=== PATIENT | female | born 1980 | race Caucasian/White ===

== ENCOUNTER 2021-05-05 12:16 | Emergency (ER) | payer OTHER, SELFPAY ==
[2021-05-05 12:27] VITALS: BP 165/97; PULSE 106; RESP 16; TEMP 36.9; O2SAT 100
--- NOTE | 2021-05-05 12:47 | ED.URI ---
HPI - URI/Sore Throat General Chief Complaint: Upper Respiratory Infection Stated Complaint: Cough, runny nose, headache Time Seen by Provider: 05/05/21 12:20 Source: patient Mode of arrival: ambulatory Limitations: no limitations History of Present Illness HPI Narrative: 41-year-old female presents to [facility] with complaints of intermittent cough for the past 3 days. Patient reports that she has started with body aches and nasal congestion through the night. Patient does work at a local emergency room. Patient denies wheezing, nausea, vomiting or diarrhea. Patient is a non-smoker. MD elicited complaint: cough, rhinorrhea and nasal congestion Onset (ago): day(s) (3) Able to tolerate fluids by mouth: Yes Related Data Home Medications Medication Instructions Recorded Confirmed albuterol sulfate INHALATION 05/05/21 bupropion HCl mg PO 05/05/21 cholecalciferol (vitamin D3) 05/05/21 levothyroxine 05/05/21 losartan 05/05/21 phentermine mg 05/05/21 Allergies Allergy/AdvReac Type Severity Reaction Status Date / Time No Known Allergies Allergy Mild Verified 05/05/21 12:43 Review of Systems Constitutional: Constitutional: Reports chills, Denies fever(s) and Denies weakness Comments: Body aches ENT: Denies dysphagia, Denies epistaxis and Denies sore throat Cardiovascular: Cardiovascular: Denies chest pain, Denies rapid heart rate, Denies radiating jaw, neck or arm pain and Denies slow heart rate Respiratory: Respiratory: Denies chest congestion, Reports cough, Denies dyspnea and Denies wheezing Gastrointestinal: Gastrointestinal: Denies abdominal pain, Denies diarrhea, Denies nausea and Denies vomiting Integumentary/Breasts: Skin/Breast: Denies rash PMFSH Past Medical History Medical History (Updated 05/05/21 @ 13:05 by Galina Argueta APRN) Asthma Surgical History Surgical History (Updated 05/05/21 @ 13:02 by Galina Argueta APRN) H/O nasal septoplasty Previous section Family History Family History (Updated 05/05/21 @ 13:02 by Galina Argueta APRN) Mother Heart disease Diabetes mellitus Hypertension Comments At time of signature, I agree with nursing past medical, surgical, social and family history. There is no relevant family history pertinent to the presenting complaint. Exam Const: General: healthy appearing and no acute distress Orientation/consciousness: patient oriented x3 HENMT: Ears: external ears normal, TM's normal bilaterally and EAC's normal General nose exam: Normal nares present Face and sinus: normal facial exam Mouth: Yes moist mucous membranes Throat: posterior oropharynx normal and uvula midline Neck: Neck: normal visual inspection Resp: Effort & Inspection: normal respiratory effort and not tachypneic Auscultation: clear to auscultation bilaterally Cardio: Rate: regular rate, not bradycardic and not tachycardic Rhythm: regular rhythm Skin: General skin exam: normal color, no jaundice and no pallor Rashes: no rashes Wounds: no wounds Neuro: General: patient oriented x3 and moves all extremities Psych: Affect: normal affect Attitude: cooperative Course Course Level of Care: Express Care Visit Vital Signs Vital signs: Vital Signs Temperature 36.9 C 05/05/21 12:27 Pulse Rate 106 H 05/05/21 12:27 Respiratory Rate 16 05/05/21 12:27 Blood Pressure 165/97 H 05/05/21 12:27 Pulse Oximetry 100 05/05/21 12:27 Temperature 36.9 C 05/05/21 12:27 Pulse Rate 106 H 05/05/21 12:27 Respiratory Rate 16 05/05/21 12:27 Blood Pressure 165/97 H 05/05/21 12:27 Pulse Oximetry 100 05/05/21 12:27 MDM - URI/Sore Throat MDM Narrative Medical decision making narrative: Patient understands that she is to self quarantine pending PCR COVID results. Patient agrees take medications as prescribed. Patient agrees to proceed the emergency room if symptoms worsen Differential Diagnosis Differential diagnosis: Likely upper respir
[2021-05-05 13:10] VITALS: BP 138/90
[2021-05-07 18:18] LABS: SARS-CoV-2 RNA PCR Negative
== END 2021-05-05 13:10 | disposition home or self-care (01) ==
PROVIDERS: Emergency Provider Nurse Practitioner Family; PCP Nurse Practitioner Family
DX: B34.9 Viral infection, unspecified (principal); Z20.822 Contact with and (suspected) exposure to COVID-19; J45.909 Unspecified asthma, uncomplicated
CPT/HCPCS: 87426; 87804; 99213; C9803; G0463; U0003; U0005